=== PATIENT | male | born 2000 | race Two or more races ===

== ENCOUNTER 2021-02-22 22:50 | Emergency (ER) | payer OTHER ==
[~2021-02-22] VITALS: Ht 165.1 cm; Wt 97.5 kg
[2021-02-23 02:18] VITALS: BP 151/80
== END 2021-02-23 02:37 | disposition home or self-care (01) ==
LOC: ER 22:54
DX: T78.40XA Allergy, unspecified, initial encounter (principal); X58.XXXA Exposure to other specified factors, initial encounter